=== PATIENT | female | born 1995 ===

== ENCOUNTER 2019-10-19 08:26 | Outpatient (CLI) | payer OTHER, SELFPAY | END 2019-10-19 08:27 | disposition home or self-care (01) | LOC: ANHAUDIO 08:27 | PROVIDERS: PCP Otolaryngology; Referring Provider Otolaryngology; Visit Provider Otolaryngology | DX: R42 Dizziness and giddiness (principal) | CPT/HCPCS: 92537; 92540; 92546; 92557; 92567 ==